=== PATIENT | male | born 1970 | race Caucasian/White ===

== ENCOUNTER 2016-08-17 00:28 | Emergency (ER) | payer SELFPAY ==
[~2016-08-17 00:28] MED LIST: BENA25TA8 PO; IBUP400 PO; PRED20 PO; RANI150 PO; SULF-154 PO
[2016-08-17 02:20] VITALS: BP 141/96; PULSE 94; RESP 14; TEMP 99.3; O2SAT 97
[2016-08-17 03:37] VITALS: BP 129/90; PULSE 80; RESP 24; TEMP 98.6; O2SAT 99
[2016-08-17] MEDS ORDERED: ZYRT10CA PO (04:24)
[2016-08-17] MEDS ORDERED: ASPI81TA81 PO (04:24)
--- NOTE | 2016-08-17 04:58 | PD ---
HPI Chief Complaint: Bite or Sting Time Seen by Provider: 04:39 Travel History International Travel<30 days: No Contact w/Intl Traveler<30days: No Traveled to known affect area: No History of Present Illness HPI 46yo M with no significant PMH here with c/o bite [place] in left leg. Pt states he felt something there yesterday but did not see anything. Then noticed an area of black [place] on left leg. Had episode of vomiting yesterday night. Denies any fever, chest pain, sob, n/v now, abdominal pain, weakness or numbness. PFSH Past Medical History Asthma: Yes Diminished Hearing: No Immunizations Current: No Tetanus Vaccination: < 5 Years Influenza Vaccination: Yes Past Surgical History Genitourinary Surgery: Yes (LEFT KIDNEY PATCH) Family History Family Hypercholesterolemia: Yes Social History Alcohol Use: No (RARE) Tobacco Use: No Substance Use: No Allergies-Medications (Allergen,Severity, Reaction): Coded Allergies: Codeine (Verified Allergy, Mild, Swelling, 08/17/16) Erythromycin (Verified Allergy, Mild, Hives, 08/17/16) Penicillin (Verified Allergy, Mild, Hives, 08/17/16) Phenergan (Verified Allergy, Mild, Hives, 08/17/16) Reported Meds & Prescriptions Reported Meds & Active Scripts Active Doxycycline Hyclate 100 Mg Cap 100 Mg PO BID 10 Days Reported Aspir-81 (Aspirin) 81 Mg Tabdr 81 Mg PO DAILY Zyrtec Allergy (Cetirizine HCl) 10 Mg Cap 10 Mg PO DAILY Review of Systems Except as stated in HPI: all other systems reviewed are Neg Physical Exam Narrative GENERAL: 46yo M not in distress. SKIN: Warm and dry. HEAD: Atraumatic. Normocephalic. CARDIOVASCULAR: Regular rate and rhythm. No murmur appreciated. RESPIRATORY: No accessory muscle use. Clear to auscultation. Breath sounds equal bilaterally. GASTROINTESTINAL: Abdomen soft, non-tender, nondistended. Hepatic and splenic margins not palpable. MUSCULOSKELETAL: No obvious deformities. No clubbing. No cyanosis. No edema. NEUROLOGICAL: Left lower extremity: +2cm by 2cm irregular shaped lesion that is black in color. No vesicle. No fluctuance. No erythema. Pt does have skin graft scar. DP 2+. PSYCHIATRIC: Appropriate mood and affect; insight and judgment normal. Data Data Last Documented VS Vital Signs Date Time Temp Pulse Resp B/P Pulse Ox O2 Delivery O2 Flow Rate FiO2 08/17/16 05:33 82 18 122/86 99 08/17/16 03:37 98.6 [facility] Medical Decision Making Medical Screen Exam Complete: Yes Emergency Medical Condition: Yes Differential Diagnosis Insect bite vs. spider bite (doubtful) Narrative Course 46yo M who is well appearing here with a lesion on left lower leg today. Pt felt something there yesterday but did not see what it was. VS stable and pt is nontoxic appearing. Will refer pt to follow up with dermatology as outpatient and to return to the ED if he has any systemic symptoms. Diagnosis Primary Impression: Bite Patient Instructions: General Instructions Departure Forms: Tests/Procedures Additional Instructions: Please follow up with dermatology in 1-2 days. Return to the ED if symptoms worsen. Med/Other Pt SpecificInfo: Prescription(s) given Scripts Doxycycline Hyclate 100 Mg [id number] Mg PO BID 10 Days Ref 0 Prov:Lizbeth Covington DO 08/17/16 Disposition: 01 DISCHARGE HOME Condition: Stable Lizbeth Covington DO Aug 17, 2016 04:58
[2016-08-17] MEDS ORDERED: DOXY100C PO (05:11)
[2016-08-17 05:33] VITALS: BP 122/86
== END 2016-08-17 05:34 | disposition home or self-care (01) ==
LOC: PHED 00:28 → PHEFT 05:34
DX: S81.852A Open bite, left lower leg, initial encounter (principal)
CPT/HCPCS: 99283

== ENCOUNTER 2016-08-24 12:49 | Emergency (ER) | payer SELFPAY ==
[~2016-08-24 12:49] MED LIST changes: +ASPI81TA81 PO; -BENA25TA8 PO; +DOXY100C PO; -IBUP400 PO; -PRED20 PO; -RANI150 PO; -SULF-154 PO; +ZYRT10CA PO
[2016-08-24 12:51] VITALS: BP 151/88; PULSE 100; RESP 16; TEMP 98.1; O2SAT 98
--- NOTE | 2016-08-24 15:28 | PD ---
HPI Chief Complaint: Bite or Sting Time Seen by Provider: 15:28 Travel History International Travel<30 days: No Contact w/Intl Traveler<30days: No Traveled to known affect area: No History of Present Illness HPI 46-year-old male with history of DM presents to the ED for evaluation of left leg wound. Patient states he was bitten by "something" on 08/17. He was seen at [facility], prescribed doxycycline. He endorses compliance, states today is date 8 of antibiotics. Presents to the ED today for worsening pain, now shooting up the leg, dizziness, nausea with 4-5 episodes of vomiting and subjective fevers. Patient endorses a mild SOB. No alleviating or exacerbating factors reported. Denies headache, palpitations or abdominal pain. PFSH Past Medical History Asthma: Yes Diabetes: Yes Diminished Hearing: No Immunizations Current: No Past Surgical History Genitourinary Surgery: Yes (LEFT KIDNEY PATCH) Family History Family Hypercholesterolemia: Yes Social History Alcohol Use: No (RARE) Tobacco Use: No Substance Use: No Allergies-Medications (Allergen,Severity, Reaction): Coded Allergies: Codeine (Verified Allergy, Mild, Swelling, 08/24/16) Erythromycin (Verified Allergy, Mild, Hives, 08/24/16) Penicillin (Verified Allergy, Mild, Hives, 08/24/16) Phenergan (Verified Allergy, Mild, Hives, 08/24/16) Reported Meds & Prescriptions Reported Meds & Active Scripts Active Doxycycline Hyclate 100 Mg Cap 100 Mg PO BID 10 Days Reported Aspir-81 (Aspirin) 81 Mg Tabdr 81 Mg PO DAILY Zyrtec Allergy (Cetirizine HCl) 10 Mg Cap 10 Mg PO DAILY Review of Systems Except as stated in HPI: all other systems reviewed are Neg Physical Exam Narrative GENERAL: Well-nourished, well-developed white male in no acute distress. SKIN: Warm and dry. There is a 4 cm area of tender erythema on the lateral aspect of the left tibia. There is a central area,approximately 1 cm, of necrotic tissue. This overlies a large skin graft scar. There is an area of mild, tender fluctuance that tracks down the tibia towards the foot. HEAD: Normocephalic. EYES: No scleral icterus. No injection or drainage. NECK: Supple, trachea midline. No JVD or lymphadenopathy. CARDIOVASCULAR: Regular rate and rhythm without murmurs, gallops, or rubs. 2+ DP and radial pulses bilaterally. RESPIRATORY: Breath sounds equal bilaterally. No accessory muscle use. GASTROINTESTINAL: Abdomen soft, non-tender, nondistended. MUSCULOSKELETAL: No cyanosis, or edema. Patient retains full, active range of motion of bilateral lower extremities. He is ambulatory and observed to walk with a slight limp on the left. BACK: Nontender without obvious deformity. No CVA tenderness. Data Data Last Documented VS Vital Signs Date Time Temp Pulse Resp B/P Pulse Ox O2 Delivery O2 Flow Rate FiO2 08/24/16 12:51 98.1 100 16 151/88 98 Orders Complete Blood Count With Diff (08/24/16 15:34) Blood Culture (08/24/16 15:34) Iv Access Insert/Monitor (08/24/16 15:34) Dexamethasone Inj (Decadron Inj) (08/24/16 15:45) Ondansetron Inj (Zofran Inj) (08/24/16 15:45) Comprehensive Metabolic Panel (08/24/16 15:34) C-Reactive Protein (Crp) (08/24/16 15:34) Westergren Sedimentation Rate (08/24/16 15:34) Lactic Acid (08/24/16 15:34) Sodium Chlor 0.9% 1000 Ml Inj (Ns 1000 M (08/24/16 16:00) MDM Medical Decision Making Medical Screen Exam Complete: Yes Emergency Medical Condition: Yes Differential Diagnosis insect bite versus spider bite versus cellulitis versus other Narrative Course 46-year-old male with history of DM presents to the ED for evaluation of left leg pain, dizziness, nausea, vomiting, subjective fevers patient states he was bitten by "something" on 08/17. He was seen at [facility], prescribed doxycycline. He endorses compliance, states today is date 8 of antibiotics. Patient endorses a mild SOB. No alleviating or exacerbating factors reported. Denies headache, palpitations or abdominal pain. Vitals reviewed. Patient tachycardic on presentation. Physical exam reveals a nontoxic appearing white male in no acute distress. There is an area of tender erythema with a 1 cm central necrotic area over the left anterior medial calf. Tender fluctuance tracking down the tibia towards the foot. IV was established. Lab work, Zofran and dexamethasone ordered. Patient will be transferred to the medical pods. Please see oncoming provider's note for disposition. Gissel Ta Aug 24, 2016 15:28
[2016-08-24] MEDS ORDERED: DEXAMETHASONE SOD PHOS 4 MG/ML VIAL IM ONE (15:45)
[2016-08-24] MEDS ORDERED: ONDANSETRON HCL 4 MG/2 ML VIAL IV PUSH ONE (15:45)
[2016-08-24] MEDS ORDERED: SODIUM CHLOR 0.9% 1000 ML INJ 1,000 ML IV ONE (16:00)
[2016-08-24 16:42] LABS: ALT (GPT) 39 U/L (12-78); ANION GAP 4 MEQ/L (5-15); AST (GOT) 16 U/L (15-37); BICARBONATE 27.6 MEQ/L (21.0-32.0); BLOOD UREA NITROGEN 10 MG/DL (7-18); CHLORIDE 108 MEQ/L (98-107); GLOMERULAR FILTRATION RATE 92 ML/MIN (>89); POTASSIUM 4.5 MEQ/L (3.5-5.1); SODIUM (NA) 140 MEQ/L (136-145)
[2016-08-24 16:44] LABS: ALKALINE PHOSPHATASE 84 U/L (45-117); TOTAL BILIRUBIN ADULT 0.4 MG/DL (0.2-1.0)
--- NOTE | 2016-08-24 17:02 | PD ---
HPI Chief Complaint: Bite or Sting Time Seen by Provider: 16:56 Travel History International Travel<30 days: No Contact w/Intl Traveler<30days: No Traveled to known affect area: No History of Present Illness HPI 46yo M presents to the ED with worsening left leg wound since he was seen at [facility] 08/17/16. Pt states that today he had dizziness and NBNB vomiting. He states he has been compliant with doxycycline but the redness is worst and pain is worst. Said they found a brown spider in his room. Had mild sob this morning. PFSH Past Medical History Asthma: Yes Diabetes: Yes Diminished Hearing: No Immunizations Current: No Past Surgical History Genitourinary Surgery: Yes (LEFT KIDNEY PATCH) Family History Family Hypercholesterolemia: Yes Social History Alcohol Use: No (RARE) Tobacco Use: No Substance Use: No Allergies-Medications (Allergen,Severity, Reaction): Coded Allergies: Codeine (Verified Allergy, Mild, Swelling, 08/24/16) Erythromycin (Verified Allergy, Mild, Hives, 08/24/16) Penicillin (Verified Allergy, Mild, Hives, 08/24/16) Phenergan (Verified Allergy, Mild, Hives, 08/24/16) Reported Meds & Prescriptions Reported Meds & Active Scripts Active Bactrim DS (Sulfamethoxazole-Trimethoprim) 800-160 Mg Tab 1 Tab PO BID Doxycycline Hyclate 100 Mg Cap 100 Mg PO BID 10 Days Reported Aspir-81 (Aspirin) 81 Mg Tabdr 81 Mg PO DAILY Zyrtec Allergy (Cetirizine HCl) 10 Mg Cap 10 Mg PO DAILY Review of Systems Except as stated in HPI: all other systems reviewed are Neg Physical Exam Narrative GENERAL: 46yo M not in distress. SKIN: Warm and dry. HEAD: Atraumatic. Normocephalic. EYES: Pupils equal and round. No scleral icterus. No injection or drainage. ENT: No nasal bleeding or discharge. Mucous membranes pink and moist. NECK: Trachea midline. No JVD. CARDIOVASCULAR: Regular rate and rhythm. No murmur appreciated. RESPIRATORY: No accessory muscle use. Clear to auscultation. Breath sounds equal bilaterally. GASTROINTESTINAL: Abdomen soft, non-tender, nondistended. MUSCULOSKELETAL: LLE: +necrotic wound left lower extremity with mild surrounding erythema that is very localized. NEUROLOGICAL: Awake and alert. No obvious cranial nerve deficits. Motor grossly within normal limits. Normal speech. PSYCHIATRIC: Appropriate mood and affect; insight and judgment normal. Data Data Last Documented VS Vital Signs Date Time Temp Pulse Resp B/P Pulse Ox O2 Delivery O2 Flow Rate FiO2 08/24/16 19:16 94 18 147/83 97 Room Air 08/24/16 12:51 98.1 Orders Complete Blood Count With Diff (08/24/16 15:34) Blood Culture (08/24/16 15:34) Iv Access Insert/Monitor (08/24/16 15:34) Dexamethasone Inj (Decadron Inj) (08/24/16 15:45) Ondansetron Inj (Zofran Inj) (08/24/16 15:45) Comprehensive Metabolic Panel (08/24/16 15:34) C-Reactive Protein (Crp) (08/24/16 15:34) Westergren Sedimentation Rate (08/24/16 15:34) Lactic Acid (08/24/16 15:34) Sodium Chlor 0.9% 1000 Ml Inj (Ns 1000 M (08/24/16 16:00) Labs Laboratory Tests Test 08/24/16 08/24/16 16:00 16:05 White Blood Count 7.8 TH/MM3 Red Blood Count 5.15 MIL/MM3 Hemoglobin 15.0 GM/DL Hematocrit 43.6 % Mean Corpuscular Volume 84.7 FL Mean Corpuscular Hemoglobin 29.2 PG Mean Corpuscular Hemoglobin 34.5 % Concent Red Cell Distribution Width 13.2 % Platelet Count 289 TH/MM3 Mean Platelet Volume 7.1 FL Neutrophils (%) (Auto) 65.4 % Lymphocytes (%) (Auto) 26.4 % Monocytes (%) (Auto) 6.9 % Eosinophils (%) (Auto) 1.0 % Basophils (%) (Auto) 0.3 % Neutrophils # (Auto) 5.1 TH/MM3 Lymphocytes # (Auto) 2.1 TH/MM3 Monocytes # (Auto) 0.5 TH/MM3 Eosinophils # (Auto) 0.1 TH/MM3 Basophils # (Auto) 0.0 TH/MM3 CBC Comment DIFF FINAL Differential Comment Erythrocyte Sedimentation Rate 3 mm/hr Sodium Level 140 MEQ/L Potassium Level 4.5 MEQ/L Chloride Level 108 MEQ/L Carbon Dioxide Level 27.6 MEQ/L Anion Gap 4 MEQ/L Blood Urea Nitrogen 10 MG/DL Creatinine 0.89 MG/DL Estimat Glomerular Filtration 92 ML/MIN Rate Random Glucose 95 MG/DL Calcium Level 8.8 MG/DL Total Bilirubin 0.4 MG/DL Aspartate Amino Transf 16 U/L (AST/SGOT) Alanine Aminotransferase 39 U/L (ALT/SGPT) Alkaline Phosphatase 84 U/L C-Reactive Protein LESS THAN 0.29 MG/DL Total Protein 7.8 GM/DL Albumin 4.4 GM/DL Lactic Acid Level 0.7 mmol/L MDM Medical Decision Making Medical Screen Exam Complete: Yes Emergency Medical Condition: Yes Interpretation(s) Laboratory Tests Test 08/24/16 08/24/16 16:00 16:05 White Blood Count 7.8 TH/MM3 (4.0-11.0) Red Blood Count 5.15 MIL/MM3 (4.50-5.90) Hemoglobin 15.0 GM/DL (13.0-17.0) Hematocrit 43.6 % (39.0-51.0) Mean Corpuscular Volume 84.7 FL (80.0-100.0) Mean Corpuscular Hemoglobin 29.2 PG (27.0-34.0) Mean Corpuscular Hemoglobin 34.5 % Concent (32.0-36.0) Red Cell Distribution Width 13.2 % (11.6-17.2) Platelet Count 289 TH/MM3 (150-450) Mean Platelet Volume 7.1 FL (7.0-11.0) Neutrophils (%) (Auto) 65.4 % (16.0-70.0) Lymphocytes (%) (Auto) 26.4 % (9.0-44.0) Monocytes (%) (Auto) 6.9 % (0.0-8.0) Eosinophils (%) (Auto) 1.0 % (0.0-4.0) Basophils (%) (Auto) 0.3 % (0.0-2.0) Neutrophils # (Auto) 5.1 TH/MM3 (1.8-7.7) Lymphocytes # (Auto) 2.1 TH/MM3 (1.0-4.8) Monocytes # (Auto) 0.5 TH/MM3 (0-0.9) Eosinophils # (Auto) 0.1 TH/MM3 (0-0.4) Basophils # (Auto) 0.0 TH/MM3 (0-0.2) CBC Comment DIFF FINAL Differential Comment Erythrocyte Sedimentation Rate 3 mm/hr (0-15) Sodium Level 140 MEQ/L (136-145) Potassium Level 4.5 MEQ/L (3.5-5.1) Chloride Level 108 MEQ/L (98-107) Carbon Dioxide Level 27.6 MEQ/L (21.0-32.0) Anion Gap 4 MEQ/L (5-15) Blood Urea Nitrogen 10 MG/DL (7-18) Creatinine 0.89 MG/DL (0.60-1.30) Estimat Glomerular Filtration 92 ML/MIN (>89) Rate Random Glucose 95 MG/DL (74-106) Calcium Level 8.8 MG/DL (8.5-10.1) Total Bilirubin 0.4 MG/DL (0.2-1.0) Aspartate Amino Transf 16 U/L (15-37) (AST/SGOT) Alanine Aminotransferase 39 U/L (12-78) (ALT/SGPT) Alkaline Phosphatase 84 U/L (45-117) C-Reactive Protein LESS THAN 0.29 MG/DL (0.00-0.30) Total Protein 7.8 GM/DL (6.4-8.2) Albumin 4.4 GM/DL (3.4-5.0) Lactic Acid Level 0.7 mmol/L (0.4-2.0) Differential Diagnosis Cellulitis vs. spider bite vs. bug bite Narrative Course 46yo M who is well appearing here with left leg wound that is not getting better since being on doxycycline. Labs reviewed, no leukocytosis. ESR normal. Lactic acid normal. Pt initially seen by PA in triage and given dexamethasone and zofran. Pt evaluated by hospitalist Dr. aMrte and agreed that pt does not meet inpatient criteria for observation. Pt's wound is very localized with mild surrounding erythema. Pt is nontoxic appearing. No fluctuance. Agreed to switch antibiotic to bactrim. Return precautions given. Pt feels better and wants to go home. Diagnosis Primary Impression: Cellulitis Qualified Code: L03.116 - Cellulitis of left lower extremity Patient Instructions: General Instructions Departure Forms: Tests/Procedures Additional Instructions: Please follow up with your PMD in 3-7 days. Return to the ED if no improved in 48 hours. Med/Other Pt SpecificInfo: Prescription(s) given Scripts Sulfamethoxazole-Trimethoprim (Bactrim DS)800-160 Mg Tab1 Tab PO BID #14 TAB Ref 0 Prov:Lizbeth Covington DO 08/24/16 Disposition: 01 DISCHARGE HOME Condition: Stable Lizbeth Covington DO Aug 24, 2016 17:02
[2016-08-24 17:12] LABS: AUTOMATED NEUTROPHIL # 5.1 TH/MM3 (1.8-7.7); BASOPHIL % 0.3 % (0.0-2.0); EOSINOPHIL # 0.1 TH/MM3 (0-0.4); HEMATOCRIT 43.6 % (39.0-51.0); HEMO FLAGS DIFF FINAL; LYMPH % 26.4 % (9.0-44.0); LYMPHOCYTE # 2.1 TH/MM3 (1.0-4.8); MEAN CELL VOLUME 84.7 FL (80.0-100.0); MEAN CORPUSCULAR HEMOGLOBIN 29.2 PG (27.0-34.0); MEAN CORPUSCULAR HGB CONC 34.5 % (32.0-36.0); MONO % 6.9 % (0.0-8.0); NEUT % 65.4 % (16.0-70.0); PLATELET COUNT 289 TH/MM3 (150-450); RED BLOOD COUNT 5.15 MIL/MM3 (4.50-5.90); RED CELL DISTRIBUTION WIDTH 13.2 % (11.6-17.2); WHITE BLOOD COUNT 7.8 TH/MM3 (4.0-11.0)
[2016-08-24] MEDS ORDERED: BACT800T5 PO (18:58)
[2016-08-24 19:16] VITALS: BP 147/83; PULSE 94; RESP 18; O2SAT 97
== END 2016-08-24 19:31 | disposition home or self-care (01) ==
LOC: NEPC 12:49
DX: L03.116 Cellulitis of left lower limb (principal); E11.9 Type 2 diabetes mellitus without complications; Z79.82 Long term (current) use of aspirin
CPT/HCPCS: 80053; 83605; 85025; 85652; 86140; 87040; 96372; 96374; 99284; J1100; J2405; J7030